=== PATIENT | female | born 1950 | race Caucasian/White ===

== ENCOUNTER 2016-10-09 10:22 | Emergency (ER) | payer BC, MEDICARE ==
[~2016-10-09] VITALS: Ht 160 cm; Wt 69.9 kg
[2016-10-09] MEDS ORDERED: MECLIZINE HCL 12.5 MG TABLET. PO ONE (10:45)
--- NOTE | 2016-10-09 10:51 | PHYS DOC ---
Past Medical History Past Medical History: GERD, High Cholesterol Past Surgical History: Cholecystectomy, Gastric Bypass, Other Additional Past Surgical Histo: lap band removed, L ELBOW Alcohol Use: None Drug Use: None Adult General Chief Complaint Chief Complaint: DIZZY/LIGHT HEADED HPI HPI Patient is a 65 year old female presents to the emergency department by POV patient states when she woke up this morning she states she was light headed and dizzy. Patient states the room was spinning. Patient states she was nauseated however she did not vomit. Patient states this has happened one other time when she was in the hospital with her was in the hospital, patient states it resolved on its own at that time. Patient states today it has not resolved. Review of Systems Review of Systems Constitutional: Denies fever or chills [] Eyes: Denies change in visual acuity, redness, or eye pain [] HENT: Denies nasal congestion or sore throat [] Respiratory: Denies cough or shortness of breath [] Cardiovascular: No additional information not addressed in HPI [] GI: Denies abdominal pain, nausea, vomiting, bloody stools or diarrhea [] : Denies dysuria or hematuria [] Musculoskeletal: Denies back pain or joint pain [] Integument: Denies rash or skin lesions [] Neurologic: Denies headache, focal weakness or sensory changes. C/o dizziness Endocrine: Denies polyuria or polydipsia [] Current Medications Current Medications Current Medications Medications (Trade) Dose Ordered Sig/Bambi Start Time Stop Time Status Last Admin Dose Admin Meclizine HCl (Antivert) 25 mg 1X ONCE 10/09/16 10:45 10/09/16 10:46 DC 10/09/16 11:03 25 MG Ondansetron HCl (Zofran) 4 mg 1X ONCE 10/09/16 11:00 10/09/16 11:01 DC 10/09/16 11:03 4 MG Allergies Allergies Allergies Coded Allergies Type Severity Reaction Last Updated Verified No Known Drug Allergies 01/23/15 No Physical Exam Physical Exam Constitutional: Well developed, well nourished, no acute distress, non-toxic appearance. [] HENT: Normocephalic, atraumatic, bilateral external ears normal, oropharynx moist, no oral exudates, nose normal. Bilateral TM normal. Eyes: PERRLA, EOMI, conjunctiva normal, no discharge. [] Neck: Normal range of motion, no tenderness, supple, no stridor. [] Cardiovascular:Heart rate regular rhythm, no murmur [] Lungs & Thorax: Bilateral breath sounds clear to auscultation [] Abdomen: Bowel sounds normal, soft, no tenderness, no masses, no pulsatile masses. [] Skin: Warm, dry, no erythema, no rash. [] Back: No tenderness Extremities: No tenderness, no cyanosis, no clubbing, ROM intact, no edema. [] Neurologic: Alert and oriented X 3, normal motor function, normal sensory function, no focal deficits noted. Cranial nerves II-XII intact patient without nystagmus Psychologic: Affect normal, judgement normal, mood normal. [] Current Patient Data Vital Signs Vital Signs Date Time Temp Pulse Resp B/P (MAP) Pulse Ox O2 Delivery O2 Flow Rate FiO2 10/09/16 10:30 98.3 64 20 166/83 (110) 98 Room Air 98.3 Lab Values Laboratory Tests Test 10/09/16 10:45 White Blood Count 5.9 x10^3/uL (4.0-11.0) Red Blood Count 4.38 x10^6/uL (3.50-5.40) Hemoglobin 13.3 g/dL (12.0-15.5) Hematocrit 38.8 % (36.0-47.0) Mean Corpuscular Volume 89 fL (79-100) Mean Corpuscular Hemoglobin 30 pg (25-35) Mean Corpuscular Hemoglobin Concent 34 g/dL (31-37) Red Cell Distribution Width 14.0 % (11.5-14.5) Platelet Count 249 x10^3/uL (140-400) Neutrophils (%) (Auto) 59 % (31-73) Lymphocytes (%) (Auto) 29 % (24-48) Monocytes (%) (Auto) 8 % (0-9) Eosinophils (%) (Auto) 3 % (0-3) Basophils (%) (Auto) 1 % (0-3) Neutrophils # (Auto) 3.4 x10^3uL (1.8-7.7) Lymphocytes # (Auto) 1.7 x10^3/uL (1.0-4.8) Monocytes # (Auto) 0.5 x10^3/uL (0.0-1.1) Eosinophils # (Auto) 0.2 x10^3/uL (0.0-0.7) Basophils # (Auto) 0.1 x10^3/uL (0.0-0.2) Sodium Level 141 mmol/L (136-145) Potassium Level 4.0 mmol/L (3.5-5.1) Chloride Level 106 mmol/L (98-107) Carbon Dioxide Level 25 mmol/L (21-32) Anion Gap 10 (6-14) Blood Urea Nitrogen 16 mg/dL (7-20) Creatinine 0.7 mg/dL (0.6-1.0) Estimated GFR (Cockcroft-Gault) 84.0 BUN/Creatinine Ratio 23 (6-20) H Glucose Level 103 mg/dL (70-99) H Calcium Level 9.2 mg/dL (8.5-10.1) Total Bilirubin 0.6 mg/dL (0.2-1.0) Aspartate Amino Transferase (AST) 23 U/L (15-37) Alanine Aminotransferase (ALT) 20 U/L (14-59) Alkaline Phosphatase 103 U/L (46-116) Troponin I Quantitative < 0.017 ng/mL (0.000-0.055) Total Protein 6.4 g/dL (6.4-8.2) Albumin 3.7 g/dL (3.4-5.0) Albumin/Globulin Ratio 1.4 (1.0-1.7) Laboratory Tests 10/09/16 10:45 Laboratory Tests 10/09/16 10:45 EKG EKG EKG completed with a heart rate of 54 sinus rhythm noted no ectopy no STEMI per Dr. Jackson[] Radiology/Procedures Radiology/Procedures [facility] [address] [place], [place] [id number] IMAGING REPORT Signed PATIENT: ALONA BRIGGS ACCOUNT: [id number] : 1950 LOCATION: ER AGE: 65 SEX: F EXAM STATUS: REG ER ORD. PHYSICIAN: JANIE SCHULER APRN REASON: dizziness PROCEDURE: CT HEAD WO CONTRAST Indication dizziness. Noncontrast images of the head were obtained. Note is made of a previous examination 12/28/2009. The calvarium appears unremarkable. The visualized paranasal sinuses appear normal. There is no subdural or epidural hematoma. The ventricles and sulci are normal. No mass or midline shift is seen. There is no evidence of hemorrhage. No acute intracranial finding is seen. IMPRESSION:: No acute or significant finding seen in the head. PQRS Compliance Statement: One or more of the following individualized dose reduction techniques were utilized for this examination: 1. Automated exposure control 2. Adjustment of the mA and/or kV according to patient size 3. Use of iterative reconstruction technique DICTATED and SIGNED BY: MARIBELL ADHIKARI MD DATE: 10/09/16 1891 CC: JANIE SCHULER APRN; CHANDRAKANT LANDRY MD ~ [] Course & Med Decision Making Course & Med Decision Making Pertinent Labs and Imaging studies reviewed. (See chart for details) CBC, CMP, troponin, EKG, CT head were all negative for any abnormalities. Patient was provided with meclizine here in the emergency department which she states that the dizziness is almost gone. She states that she still has nausea. She'll be provided with a second dose of Zofran. Patient will be discharged home in stable condition with signs and symptoms to return back to the emergency department. She was instructed that meclizine may cause drowsiness do not take any be alert and oriented. Patient was also instructed will send her with some prescription for Zofran. Recommended following up with her primary care physician in the next 3-5 days. Patient agrees with discharge instructions treatment regimens and follow-up recommendations. [] Dragon Disclaimer Dragon Disclaimer This electronic medical record was generated, in whole or in part, using a voice recognition dictation system. Departure Departure Impression: Primary Impression: Dizziness Disposition: HOME, SELF-CARE Condition: STABLE Referrals: CHANDRAKANT LANDRY MD (PCP) Patient Instructions: Vertigo, [id number] Additional Instructions: Home to rest Medication as prescribed When getting up from a lying position do so slowly to prevent increase dizziness Followup with primary care provider in 3-5 days Return to emergency department as needed for signs and symptoms that become worse. Scripts Meclizine Hcl (MECLIZINE HCL) 25 Mg Tablet 1 TAB PO PRN TID, #30 TAB Prov: JANIE SCHULER APRN 10/09/16 Ondansetron (ZOFRAN ODT) 4 Mg Tab.rapdis 1 TAB SL Q8HRS, #10 TAB Prov: JANIE SCHULER APRN 10/09/16 JANIE SCHULER APRN October 09, 2016 10:51
[2016-10-09 10:57] LABS: BASO # 0.1 x10^3/uL (0.0-0.2); BASO % 1 % (0-3); EOS % 3 % (0-3); HEMATOCRIT 38.8 % (36.0-47.0); HEMOGLOBIN 13.3 g/dL (12.0-15.5); LYMPH # 1.7 x10^3/uL (1.0-4.8); LYMPH % 29 % (24-48); MEAN CORPUSCULAR HEMOGLOBIN 30 pg (25-35); MEAN CORPUSCULAR HGB CONC 34 g/dL (31-37); MEAN CORPUSCULAR VOLUME 89 fL (79-100); MONO % 8 % (0-9); NEUT % 59 % (31-73); PLATELET COUNT 249 x10^3/uL (140-400); RED BLOOD COUNT 4.38 x10^6/uL (3.50-5.40); WHITE BLOOD COUNT 5.9 x10^3/uL (4.0-11.0)
[2016-10-09] MEDS ORDERED: ONDANSETRON PF 4 MG/2 ML VIAL. IV ONE (11:00)
[2016-10-09 11:05] LABS: CALCIUM 9.2 mg/dL (8.5-10.1); CREATININE 0.7 mg/dL (0.6-1.0)
--- NOTE | 2016-10-09 11:07 | EKG ---
[facility] [address] [place] [address] Test Date: 2016-10-09 Test Time: 10:40:18 Pat Name: ALONA BRIGGS Department: Room: Gender: F [employer]: : 1950 Requested By: JANIE SCHULER Order Number: [id number] Reading MD: Measurements Intervals [place] Rate: 54 P: 28 LA: 190 QRS: -20 QRSD: 82 T: 26 QT: 428 QTc: 408 Interpretive Statements SINUS RHYTHM ATRIAL PREMATURE COMPLEX(ES) LEFTWARD AXIS QRS(T) CONTOUR ABNORMALITY CONSISTENT WITH ANTEROSEPTAL INFARCT AGE UNDETERMINED CONSIDER INFERIOR MYOCARDIAL DAMAGE RI6.01 Unconfirmed report No previous ECG available for comparison
[2016-10-09 11:13] LABS: ALBUMIN 3.7 g/dL (3.4-5.0); ALBUMIN/GLOBULIN RATIO 1.4 (1.0-1.7); TOTAL BILIRUBIN 0.6 mg/dL (0.2-1.0); TOTAL PROTEIN 6.4 g/dL (6.4-8.2)
--- NOTE | 2016-10-09 11:59 | RAD ---
Indication dizziness. Noncontrast images of the head were obtained. Note is made of a previous examination 12/28/2009. The calvarium appears unremarkable. The visualized paranasal sinuses appear normal. There is no subdural or epidural hematoma. The ventricles and sulci are normal. No mass or midline shift is seen. There is no evidence of hemorrhage. No acute intracranial finding is seen. IMPRESSION:: No acute or significant finding seen in the head. PQRS Compliance Statement: One or more of the following individualized dose reduction techniques were utilized for this examination: 1. Automated exposure control 2. Adjustment of the mA and/or kV according to patient size 3. Use of iterative reconstruction technique
[2016-10-09 12:00] VITALS: BP 176/76
[2016-10-09] MEDS ORDERED: MECL25TA3 PO (12:12)
[2016-10-09] MEDS ORDERED: ONDA4TAB10 SL (12:12)
[2016-10-09] MEDS ORDERED: ONDANSETRON ODT 4 MG TAB.RAPDIS. PO ONE (12:15)
== END 2016-10-09 12:34 | disposition home or self-care (01) ==
LOC: ER 10:22
DX: R42 Dizziness and giddiness (principal); E78.00 Pure hypercholesterolemia, unspecified; K21.9 Gastro-esophageal reflux disease without esophagitis; Z90.49 Acquired absence of other specified parts of digestive tract; Z98.84 Bariatric surgery status
CPT/HCPCS: 36415; 70450; 80053; 84484; 85027; 93005; 96374; 99285; J2405; J8597; Q0162

== ENCOUNTER 2017-04-24 22:26 | Emergency (ER) | payer MEDICARE ==
[~2017-04-24] VITALS: Ht 157.5 cm; Wt 66.7 kg
[~2017-04-24 22:26] MED LIST: MECL25TA3 PO; ONDA4TAB10 SL
[2017-04-24 22:51] LABS: BILIRUBIN,URINE SMALL (NEG); GLUCOSE,URINE NEGATIVE (NEG); NITRITE,URINE POSITIVE (NEG); PROTEIN,URINE NEGATIVE (NEG-TRACE)
[2017-04-24 22:53] LABS: BASO # 0.1 x10^3/uL (0.0-0.2); BASO % 1 % (0-3); EOS % 3 % (0-3); HEMATOCRIT 42.4 % (36.0-47.0); HEMOGLOBIN 13.9 g/dL (12.0-15.5); LYMPH # 2.1 x10^3/uL (1.0-4.8); LYMPH % 22 % (24-48); MEAN CORPUSCULAR HEMOGLOBIN 30 pg (25-35); MEAN CORPUSCULAR HGB CONC 33 g/dL (31-37); MEAN CORPUSCULAR VOLUME 92 fL (79-100); MONO % 9 % (0-9); NEUT % 67 % (31-73); PLATELET COUNT 227 x10^3/uL (140-400); RED BLOOD COUNT 4.58 x10^6/uL (3.50-5.40); RED CELL DISTRIBUTION WIDTH 14.1 % (11.5-14.5); WHITE BLOOD COUNT 9.7 x10^3/uL (4.0-11.0)
--- NOTE | 2017-04-24 22:53 | PHYS DOC ---
Past Medical History Past Medical History: GERD, High Cholesterol Additional Past Medical Histor: Vertigo Past Surgical History: Cholecystectomy, Gastric Bypass, Other Additional Past Surgical Histo: lap band removed, L ELBOW Additional Information: Non smoker Alcohol Use: None Drug Use: None Social History Narrative: Lives with sister Adult General Chief Complaint Chief Complaint: SYNCOPE HPI HPI Patient is a 66 year old female who presents with complaint of syncope. She states yesterday at 2230 PM she was going home with her sister (whom she lives with) and her sister felt something hit her leg "and I realized she passed out on the yard." She denies any preceding complaints; no headache; no SOA; no chest pain; no back pain and no abdominal pain. She denies any recent illness. She slept "all day today" and complains of frontal headache, dizziness and nausea. No spinning but more light headed. The frontal headache is a "7". She still denies any chest pain, no shortness of air, no back pain and no abdominal pain. Had one loose stool today; no blood. No burning or blood in urine. No travel. No confusion (per patient or family). She was here 09/[address] head negative and normal lab. Treated successfully with meclizine and zofran. Followed by Dr Moran. Review of Systems Review of Systems Constitutional: Denies fever or chills Eyes: Denies change in visual acuity, redness, or eye pain HENT: Denies nasal congestion or sore throat Respiratory: Denies cough or shortness of breath Cardiovascular: No chest pain GI: Denies abdominal pain, POS nausea, Denies vomiting,NO bloody stools one loose stool. : Denies dysuria or hematuria Musculoskeletal: Denies back pain or joint pain Integument: Denies rash or skin lesions Neurologic: POS headache, Denies focal weakness or sensory changes; light headed. Endocrine: Denies polyuria or polydipsia All other systems were reviewed and found to be within normal limits, except as documented in this note. Current Medications Current Medications Current Medications Medications (Trade) Dose Ordered Sig/Bambi Start Time Stop Time Status Last Admin Dose Admin Ceftriaxone Sodium 50 ml @ 100 mls/hr 1X ONCE 04/24/17 23:45 04/25/17 00:14 DC 04/24/17 23:27 100 MLS/HR Info (Do NOT chart on this entry -- for MONITORING) 1 each PRN DAILY PRN 04/24/17 23:45 04/26/17 23:44 Iohexol (Omnipaque 300 Mg/ml) 75 ml 1X ONCE 04/25/17 00:30 04/25/17 00:31 DC 04/25/17 00:50 75 ML Sodium Chloride 1,000 ml @ 1,000 mls/hr 1X ONCE 04/25/17 00:00 04/25/17 00:59 DC 04/25/17 00:25 1,000 MLS/HR Allergies Allergies Allergies Coded Allergies Type Severity Reaction Last Updated Verified No Known Drug Allergies 01/23/15 No Physical Exam Physical Exam Constitutional: Well developed, well nourished, no acute distress, non-toxic appearance. Ambulates without difficulty HENT: Normocephalic,swelling to back of head, no laceration, tympanic membranes are clear without hemotympanum bilaterally, bilateral external ears normal, oropharynx moist, no oral exudates, nose normal. Eyes: PERRLA, EOMI, conjunctiva normal, no discharge. Neck: Normal range of motion, no tenderness, supple, no stridor. Nontender to palpation of cervical spine, no crepitus or step-off. Cardiovascular:Heart rate regular rhythm, no murmur Lungs & Thorax: Bilateral breath sounds clear to auscultation Abdomen: Bowel sounds normal, soft, no tenderness, no masses, no pulsatile masses. Skin: Warm, dry, no erythema, no rash. Back: No tenderness, no CVA tenderness. Extremities: No tenderness, no cyanosis, no clubbing, ROM intact, no edema. Neurologic: Alert and oriented X 3, normal motor function, normal sensory function, no focal deficits noted. Psychologic: Affect normal, judgement normal, mood normal. Current Patient Data Vital Signs Vital Signs Date Time Temp Pulse Resp B/P (MAP) Pulse Ox O2 Delivery O2 Flow Rate FiO2 04/24/17 23:29 61 20 142/72 (95) 100 04/24/17 22:32 98.0 Room Air 98.0 Lab Values Laboratory Tests Test 04/24/17 22:40 White Blood Count 9.7 x10^3/uL (4.0-11.0) Red Blood Count 4.58 x10^6/uL (3.50-5.40) Hemoglobin 13.9 g/dL (12.0-15.5) Hematocrit 42.4 % (36.0-47.0) Mean Corpuscular Volume 92 fL (79-100) Mean Corpuscular Hemoglobin 30 pg (25-35) Mean Corpuscular Hemoglobin Concent 33 g/dL (31-37) Red Cell Distribution Width 14.1 % (11.5-14.5) Platelet Count 227 x10^3/uL (140-400) Neutrophils (%) (Auto) 67 % (31-73) Lymphocytes (%) (Auto) 22 % (24-48) L Monocytes (%) (Auto) 9 % (0-9) Eosinophils (%) (Auto) 3 % (0-3) Basophils (%) (Auto) 1 % (0-3) Neutrophils # (Auto) 6.5 x10^3uL (1.8-7.7) Lymphocytes # (Auto) 2.1 x10^3/uL (1.0-4.8) Monocytes # (Auto) 0.8 x10^3/uL (0.0-1.1) Eosinophils # (Auto) 0.3 x10^3/uL (0.0-0.7) Basophils # (Auto) 0.1 x10^3/uL (0.0-0.2) D-Dimer (Christina) 0.61 ug/mlFEU (0.00-0.50) H Urine Collection Type Unknown Urine Color Kylie Urine Clarity Turbid Urine pH 6.0 Urine Specific [place] >=1.030 Urine Protein Negative mg/dL (NEG-TRACE) Urine Glucose (UA) Negative mg/dL (NEG) Urine Ketones (Stick) Trace mg/dL (NEG) Urine Blood Trace (NEG) Urine Nitrite Positive (NEG) Urine Bilirubin Small (NEG) Urine Urobilinogen Dipstick 1.0 mg/dL (0.2 mg/dL) Urine Leukocyte Esterase Small (NEG) Urine RBC 1-2 /HPF (0-2) Urine WBC 5-10 /HPF (0-4) Urine Squamous Epithelial Cells Few /LPF Urine Amorphous Sediment Present /HPF Urine Bacteria Many /HPF (0-FEW) Urine Mucus Slight /LPF Sodium Level 139 mmol/L (136-145) Potassium Level 3.5 mmol/L (3.5-5.1) Chloride Level 101 mmol/L (98-107) Carbon Dioxide Level 26 mmol/L (21-32) Anion Gap 12 (6-14) Blood Urea Nitrogen 21 mg/dL (7-20) H Creatinine 0.8 mg/dL (0.6-1.0) Estimated GFR (Cockcroft-Gault) 71.8 BUN/Creatinine Ratio 26 (6-20) H Glucose Level 107 mg/dL (70-99) H Calcium Level 9.2 mg/dL (8.5-10.1) Magnesium Level 2.0 mg/dL (1.8-2.4) Total Bilirubin 0.5 mg/dL (0.2-1.0) Aspartate Amino Transferase (AST) 20 U/L (15-37) Alanine Aminotransferase (ALT) 22 U/L (14-59) Alkaline Phosphatase 86 U/L (46-116) Creatine Kinase 82 U/L (26-192) Creatine Kinase MB (Mass) < 0.5 ng/mL (0.0-3.6) Creatine Kinase MB Relative Index 0.6 % (0-4) Troponin I Quantitative < 0.017 ng/mL (0.000-0.055) DV-Aqj-G-Type Natriuretic Peptide 143 pg/mL (0-124) H Total Protein 7.2 g/dL (6.4-8.2) Albumin 4.1 g/dL (3.4-5.0) Albumin/Globulin Ratio 1.3 (1.0-1.7) Laboratory Tests 04/24/17 22:40 Laboratory Tests 04/24/17 22:40 EKG EKG EKG interpreted by myself at 2240 PM with NSR< rate 62, leftward axis; no ST elevation. Radiology/Procedures Radiology/Procedures CXR interpreted by myself at 2315 PM: no acute infiltrate; slightly elevated right hemidiaphragm. No pleural effusion. [facility] [address] [place] [address] IMAGING REPORT Signed PATIENT: ALONA BRIGGS ACCOUNT: [id number] : 1950 LOCATION: ER AGE: 66 SEX: F EXAM STATUS: REG ER ORD. PHYSICIAN: IMELDA CHINO MD REASON: syncope; hit back of head; now headache and dizziness; h/o vertigo PROCEDURE: CT HEAD AND CERVICAL SPINE WO CT and cervical spine without contrast 04/24/2017 Clinical indications: Dizzy and fall. Neck pain. COMPARISON: CT head without contrast 12/18/2009. TECHNIQUE: Multiple CT images of the head and cervical spine were obtained without contrast. *One or more of the following individualized dose reduction techniques were utilized for this examination: 1. Automated exposure control. 2. Adjustment of the mA and/or kV according to patient size. 3. Use of iterative reconstruction technique. FINDINGS: Head: No acute intracranial hemorrhage or extra-axial fluid collection. No midline shift. The ventricles and subarachnoid spaces are normal in size and configuration for age. The alejandre-white matter interfaces are maintained. The basal cisterns are patent. Cervical spine: No acute cervical spine fracture or traumatic malalignment. Moderate atlantodens arthrosis. No predental space widening. The vertebral body heights are maintained. There is 2 mm anterolisthesis C4 on C5. Multilevel cervical spondylosis with disc space narrowing, uncovertebral and facet hypertrophy and posterior disc osteophyte complexes. Spondylosis results in multilevel neural foraminal narrowing, greatest to severe degree, on the right at C3-C4 and on the right at C5-C6. At C2-C3, central disc protrusion resulting in mild spinal canal narrowing. At C5-C6, posterior disc osteophyte complex results in moderate spinal canal narrowing. The paraspinal soft tissues are unremarkable. The visualized lung apices are clear. IMPRESSION: Head: 1. No acute intracranial hemorrhage. Cervical spine: 1. No acute cervical spine fracture or traumatic malalignment. 2. Cervical spondylosis resulting in multilevel neural foraminal narrowing greatest to severe degree on the right at C3-C4 and C5-C6. 3. At C5-C6, posterior disc osteophyte complex resulting in moderate spinal canal narrowing. Electronically signed by: Lisandro Rice MD (04/24/2017 11:22 PM) [facility] DICTATED and SIGNED BY: LISANDRO RICE MD DATE: 04/24/17 2229 CC: IMELDA CHINO MD; CHANDRAKANT MORAN MD ~ [facility] [address] [facility] [place] [address] IMAGING REPORT Signed PATIENT: ALONA BRIGGS ACCOUNT: [id number] : 1950 LOCATION: ER AGE: 66 SEX: F EXAM STATUS: REG ER ORD. PHYSICIAN: IMELDA CHINO MD REASON: elev D dimer; syncope; r/o PE PROCEDURE: CT ANGIOGRAPHY CHEST INDICATION: PASSED OUT LAST NIGHT AND HIT HEAD ON PORCH ELEVATED D DIMER INJ 75ML OMNI 300 NO PREV SX: AMANDA LAP[ BAND GASTRIC BYPASS COMPARISON: None. TECHNIQUE: Axial CT images obtained through the chest. Intravenous contrast utilized. Angiogram 3D images processed per protocol. One or more of the following individualized dose reduction techniques were utilized for this examination: 1. Automated exposure control; 2. Adjustment of the mA and/or kV according to patient size; 3. Use of iterative reconstruction technique. FINDINGS: No definite focal airspace consolidation to suggest pneumonia. Mild linear opacities at left lung base. Could be scarring or atelectasis. Sub-4 mm right upper lung nodule. Additional right midlung nodule measuring up to 6 mm. Postoperative changes partially visualized stomach. Possible low-attenuation region of fullness at partially visualized pancreatic head. Partial visualization of fat-containing anterior abdominal wall hernia. Motion obscures portions of proximal aorta but no definite aneurysm in visualized portions. Mildly enlarged right hilar lymph node measuring up to approximately 15 mm short axis. Scattered smaller lymph nodes in mediastinum. There is a couple of mildly angulated ribs anteriorly including on the left at the second through fourth ribs. Could be from old injury but would correlate with pain in the region to ensure that this is not from acute fracture. IMPRESSION: No central pulmonary embolus. There are couple of pulmonary nodules measuring up to 6 mm. Partial visualization of the pancreas with some possible fullness in the pancreatic head region. May be helpful to obtain a follow-up nonemergent CT or MRI pancreatic protocol to further evaluate and ensure that there is not a lesion in the area. Would also correlate with symptoms to ensure that there is not pancreatitis. Mildly enlarged right hilar lymph node of unknown etiology. Mild angulation of a few of the left anterior ribs. This is a very subtle finding but would correlate with pain in the region to ensure that this is not secondary to acute injury. This could be related to remote injury as well. Minimal wedging T6 vertebral body. Could be an old finding but correlate with pain in the region to ensure that this is not acute. There is mild contour deformity at the inferior aspect of the aortic arch distally. Most common cause for this finding would be a ductus bump unless the patient has had history of significant trauma to the chest to suggest a posttraumatic cause which is considered less likely. Electronically signed by: Finesse Marie MD (04/25/2017 12:59 AM) [facility] DICTATED and SIGNED BY: FINESSE MARIE MD DATE: 04/25/17 0045 CC: IMELDA CHINO MD; CHANDRAKANT MORAN MD ~ Course & Med Decision Making Course & Med Decision Making Evaluated patient upon arrival to room 18. Mental status at baseline (family in room confirm). She feels like this might be different from usual vertigo. At 2315 PM: back from CT and awaiting results. BUN elevated and UA positive. IV NS wide open, Rocephin IV. At 2335 CT results negative. D dimer elevated. Reviewed findings with patient and family. Will check CT chest to r/o PE. At 0015 AM: back from CT and awaiting results. Second liter infusing. At 0115 am: radiology report back and noted. No PE. Home with Rx: for macrobid. Follow up with Dr Moran on Thursday. I have spoken with the patient and/or caregivers. I have explained the patient' s condition, diagnosis and treatment plan based on the information available to me at this time. I have answered the patient's and/or caregiver's questions and addressed any concerns. The patient and/or caregivers have as good an understanding of the patient's diagnosis, condition and treatment plan as can be expected at this point. The patient's condition is stable and appropriate for discharge from the emergency department. The patient will pursue further outpatient evaluation with the primary care physician or other designated or consulting physician as outlined in the discharge instructions. The patient and/or caregivers are agreeable to this plan of care and follow-up instructions have been explained in detail. The patient and/or caregivers have received these instructions in written format and have expressed an understanding of the discharge instructions. The patient and/or caregivers are aware that any significant change in condition or worsening of symptoms should prompt an immediate return to this or the closest emergency department or a call to 911. Transient ischemic attack (particularly in older adults), Migraine, Panic attack and anxiety,Psychogenic nonepileptic seizure, Transient global amnesia ( rare before the age of 50 years), Narcolepsy with cataplexy, Paroxysmal movement disorders, cardiac dysrhythmias, electrolyte imbalances. Pulmonary emboli, Sepsis. PERC RULE Criteria: Age < than 50 years-NO Heart rate < 100-YES Oxygen saturation > 95%-YES No hemoptysis-YES No estrogen use-YES No prior DVT or PE-YES No unilateral leg swelling-YES No surgery or trauma requiring hospitalization within the prior 4 weeks-YES PERC rule not satisfied. Dragon Disclaimer Dragon Disclaimer This electronic medical record was generated, in whole or in part, using a voice recognition dictation system. Departure Departure Impression: Primary Impression: Urinary tract infection Additional Impressions: Dehydration Dizziness Syncope Disposition: HOME, SELF-CARE Condition: STABLE Referrals: CHANDRAKANT MORAN MD (PCP) Patient Instructions: Dehydration, Adult, Dizziness, Syncope, Urinary Tract Infection Additional Instructions: YOUR URINE WAS INFECTED HERE AND YOU WERE DEHYDRATED. YOU WERE GIVEN YOUR FIRST DOSE OF ANTIBIOTICS HERE AND IV FLUIDS. LAB AND CT IMAGING WERE ALL UNREMARKABLE OTHERWISE. CALL DR MORAN ON THURSDAY FOR EVALUATION AND FOLLOW UP ON INCIDENTAL CT FINDINGS. Scripts Meclizine Hcl (MECLIZINE HCL) 25 Mg Tablet 1 TAB PO PRN TID, #30 TAB Prov: IMELDA CHINO MD 04/25/17 Ondansetron (ZOFRAN ODT) 4 Mg Tab.rapdis 4 MG PO BID Y for NAUSEA/VOMITING, #10 TAB Prov: IMELDA CHINO MD 04/25/17 Nitrofurantoin Monohyd/M-Cryst (MACROBID 100 MG CAPSULE) 100 Mg Capsule 1 CAP PO BID, #14 CAP Prov: IMELDA CHINO MD 04/25/17 Problem Qualifiers Primary Impression: Urinary tract infection Urinary tract infection type: acute cystitis Hematuria presence: without hematuria Qualified Codes: N30.00 - Acute cystitis without hematuria Additional Impressions: Syncope Syncope type: unspecified Qualified Codes: R55 - Syncope and collapse IMELDA CHINO MD Apr 24, 2017 22:52
[2017-04-24 22:57] LABS: BACTERIA,URINE MANY /HPF (0-FEW); SQUAMOUS EPITHELIAL CELL,UR FEW /LPF
[2017-04-24] MEDS ORDERED: IV NORMAL SALINE 1000ML BAG 1,000 ML IV SCH (23:00)
[2017-04-24 23:03] LABS: CALCIUM 9.2 mg/dL (8.5-10.1); CREATININE 0.8 mg/dL (0.6-1.0); GFR 71.8; POTASSIUM 3.5 mmol/L (3.5-5.1)
[2017-04-24 23:10] LABS: ALBUMIN 4.1 g/dL (3.4-5.0); ALBUMIN/GLOBULIN RATIO 1.3 (1.0-1.7); TOTAL BILIRUBIN 0.5 mg/dL (0.2-1.0); TOTAL PROTEIN 7.2 g/dL (6.4-8.2)
[2017-04-24 23:17] LABS: CREATINE KINASE 82 U/L (26-192)
[2017-04-24 23:21] LABS: CKMB MASS < 0.5 ng/mL (0.0-3.6)
--- NOTE | 2017-04-24 23:25 | RAD ---
CT and cervical spine without contrast 04/24/2017 Clinical indications: Dizzy and fall. Neck pain. COMPARISON: CT head without contrast 12/18/2009. TECHNIQUE: Multiple CT images of the head and cervical spine were obtained without contrast. *One or more of the following individualized dose reduction techniques were utilized for this examination: 1. Automated exposure control. 2. Adjustment of the mA and/or kV according to patient size. 3. Use of iterative reconstruction technique. FINDINGS: Head: No acute intracranial hemorrhage or extra-axial fluid collection. No midline shift. The ventricles and subarachnoid spaces are normal in size and configuration for age. The alejandre-white matter interfaces are maintained. The basal cisterns are patent. Cervical spine: No acute cervical spine fracture or traumatic malalignment. Moderate atlantodens arthrosis. No predental space widening. The vertebral body heights are maintained. There is 2 mm anterolisthesis C4 on C5. Multilevel cervical spondylosis with disc space narrowing, uncovertebral and facet hypertrophy and posterior disc osteophyte complexes. Spondylosis results in multilevel neural foraminal narrowing, greatest to severe degree, on the right at C3-C4 and on the right at C5-C6. At C2-C3, central disc protrusion resulting in mild spinal canal narrowing. At C5-C6, posterior disc osteophyte complex results in moderate spinal canal narrowing. The paraspinal soft tissues are unremarkable. The visualized lung apices are clear. IMPRESSION: Head: 1. No acute intracranial hemorrhage. Cervical spine: 1. No acute cervical spine fracture or traumatic malalignment. 2. Cervical spondylosis resulting in multilevel neural foraminal narrowing greatest to severe degree on the right at C3-C4 and C5-C6. 3. At C5-C6, posterior disc osteophyte complex resulting in moderate spinal canal narrowing. Electronically signed by: Livan Rice MD (04/24/2017 11:22 PM) [facility]
[2017-04-24] MEDS ORDERED: IV NORMAL SALINE 1000ML BAG 1,000 ML IV ONE (23:30)
[2017-04-24] MEDS ORDERED: CONTRAST GIVEN MC PRN (23:45)
[2017-04-25] MEDS ORDERED: IV NORMAL SALINE 1000ML BAG 1,000 ML IV ONE
[2017-04-25] MEDS ORDERED: IOHEXOL 300 MG/ML 100ML VIAL. IV ONE (00:30)
[2017-04-25 01:00] VITALS: BP 118/56
--- NOTE | 2017-04-25 01:02 | RAD ---
INDICATION: PASSED OUT LAST NIGHT AND HIT HEAD ON PORCH ELEVATED D DIMER INJ 75ML OMNI 300 NO PREV SX: AMANDA LAP[ BAND GASTRIC BYPASS COMPARISON: None. TECHNIQUE: Axial CT images obtained through the chest. Intravenous contrast utilized. Angiogram 3D images processed per protocol. One or more of the following individualized dose reduction techniques were utilized for this examination: 1. Automated exposure control; 2. Adjustment of the mA and/or kV according to patient size; 3. Use of iterative reconstruction technique. FINDINGS: No definite focal airspace consolidation to suggest pneumonia. Mild linear opacities at left lung base. Could be scarring or atelectasis. Sub-4 mm right upper lung nodule. Additional right midlung nodule measuring up to 6 mm. Postoperative changes partially visualized stomach. Possible low-attenuation region of fullness at partially visualized pancreatic head. Partial visualization of fat-containing anterior abdominal wall hernia. Motion obscures portions of proximal aorta but no definite aneurysm in visualized portions. Mildly enlarged right hilar lymph node measuring up to approximately 15 mm short axis. Scattered smaller lymph nodes in mediastinum. There is a couple of mildly angulated ribs anteriorly including on the left at the second through fourth ribs. Could be from old injury but would correlate with pain in the region to ensure that this is not from acute fracture. IMPRESSION: No central pulmonary embolus. There are couple of pulmonary nodules measuring up to 6 mm. Partial visualization of the pancreas with some possible fullness in the pancreatic head region. May be helpful to obtain a follow-up nonemergent CT or MRI pancreatic protocol to further evaluate and ensure that there is not a lesion in the area. Would also correlate with symptoms to ensure that there is not pancreatitis. Mildly enlarged right hilar lymph node of unknown etiology. Mild angulation of a few of the left anterior ribs. This is a very subtle finding but would correlate with pain in the region to ensure that this is not secondary to acute injury. This could be related to remote injury as well. Minimal wedging T6 vertebral body. Could be an old finding but correlate with pain in the region to ensure that this is not acute. There is mild contour deformity at the inferior aspect of the aortic arch distally. Most common cause for this finding would be a ductus bump unless the patient has had history of significant trauma to the chest to suggest a posttraumatic cause which is considered less likely. Electronically signed by: Dereck Marie MD (04/25/2017 12:59 AM) [facility]
[2017-04-25] MEDS ORDERED: MECL25TA3 PO (01:20)
[2017-04-25] MEDS ORDERED: ONDA4TAB10 PO (01:20)
[2017-04-25] MEDS ORDERED: NITR100C62 PO (01:20)
--- NOTE | 2017-04-25 07:06 | EKG ---
[facility] [address] [place] [address] Test Date: 2017-04-24 Test Time: 22:40:30 Pat Name: ALONA BRIGGS Department: Room: Gender: F Medical Language Specialist: : 1950 Requested By: IMELDA CHINO Order Number: [id number] Reading MD: Guevara Weiss MD Measurements Intervals [place] Rate: 62 P: 42 LA: 186 QRS: -16 QRSD: 84 T: 26 QT: 426 QTc: 435 Interpretive Statements SINUS RHYTHM Electronically Signed On 05-01-2017 14:40:52 [employer] by Guevara Weiss MD
--- NOTE | 2017-04-25 08:18 | RAD ---
AP chest. History: Syncope AP view was taken of the chest. Lungs are clear. Heart is normal in size without heart failure. There is no effusion. Impression: 1. No acute chest disease.
== END 2017-04-25 01:45 | disposition home or self-care (01) ==
LOC: ER 22:26
DX: R55 Syncope and collapse (principal); N30.00 Acute cystitis without hematuria; E86.0 Dehydration; R42 Dizziness and giddiness; R51 Headache; K21.9 Gastro-esophageal reflux disease without esophagitis; E78.00 Pure hypercholesterolemia, unspecified; Z90.49 Acquired absence of other specified parts of digestive tract; Z98.84 Bariatric surgery status
CPT/HCPCS: 36415; 70450; 71010; 71275; 72125; 80053; 81001; 82553; 83735; 83880; 84484; 85025; 85379; 87086; 87186; 93005; 96361; 96365; 99285; J0690; J7030; Q9967

== ENCOUNTER 2019-10-05 18:56 | Emergency (ER) | payer MEDICARE ==
[~2019-10-05] VITALS: Ht 160 cm; Wt 82.0 kg
[~2019-10-05 18:56] MED LIST changes: +MECL-75 PO; -MECL25TA3 PO; +NITR100C62 PO; +ONDA4TAB10 PO
[2019-10-05] MEDS ORDERED: ONDANSETRON PF 4 MG/2 ML VIAL. IVP ONE (19:30)
[2019-10-05] MEDS ORDERED: fentaNYL PF VIAL 100 MCG/2 ML VIAL IVP ONE ×2 (19:30→20:15)
--- NOTE | 2019-10-05 19:50 | RAD ---
ELBOW LEFT 3V History: Fall. Pain. Technique: 3 views left elbow. Comparison: None. Findings: Postoperative changes left lateral humeral condyle. No significant elbow joint effusion. Elbow degenerative changes. No acute fracture. Radial tuberosity and olecranon enthesophyte. Soft tissues unremarkable. Impression: 1. No acute osseous abnormality. 2. Elbow degenerative and postoperative changes. Electronically signed by: Too Barba DO (10/05/2019 7:47 PM) [facility]
[2019-10-05] MEDS ORDERED: KETOROLAC 15 MG/ML VIAL. IVP ONE (20:15)
--- NOTE | 2019-10-05 20:52 | RAD ---
SHOULDER 2+V LEFT History: Fall. Pain. Technique: 2 views left shoulder. Comparison: None. Findings: Acute comminuted left humeral head fracture. No dislocation. Soft tissues unremarkable. Mild acromioclavicular DJD. Impression: 1. Acute comminuted left humeral head fracture. Electronically signed by: Too Barba DO (10/05/2019 8:49 PM) [facility]
[2019-10-05] MEDS ORDERED: HYDR-3164 PO (21:02)
--- NOTE | 2019-10-05 21:03 | PHYS DOC ---
Past Medical History Past Medical History: GERD, High Cholesterol Additional Past Medical Histor: Vertigo Past Surgical History: Cholecystectomy, Gastric Bypass, Other Additional Past Surgical Histo: lap band removed, L ELBOW, GASTRIC SLEEVE Smoking Status: Never Smoker Alcohol Use: None Drug Use: None General Adult EDM: Chief Complaint: MECHANICAL FALL HPI: HPI: Patient is a 68 year old female who presents with complaint of left elbow pain after tripping over a hose at the car wash. Patient states that she fell onto her left elbow. She rates pain at a 10 out of 10. She states that she has had surgery on that left elbow in the past and she knows that she broke it. She denies any other injuries. She states that the pain radiates up and down her arm. [] Review of Systems: Review of Systems: Constitutional: Denies fever or chills. [] Respiratory: Denies cough or shortness of breath. [] Cardiovascular: Denies chest pain or edema. [] Musculoskeletal: Complains of left elbow pain. [] Integument: Denies rash. [] Neurologic: Denies headache, focal weakness or sensory changes. [] Heart Score: Risk Factors: Risk Factors: DM, Current or recent (<one month) smoker, HTN, HLP, family history of CAD, obesity. Risk Scores: Score 0 - 3: 2.5% MACE over next 6 weeks - Discharge Home Score 4 - 6: 20.3% MACE over next 6 weeks - Admit for Clinical Observation Score 7 - 10: 72.7% MACE over next 6 weeks - Early Invasive Strategies Current Medications: Current Medications Medications (Trade) Dose Ordered Sig/[facility] Start Time Stop Time Status Last Admin Dose Admin Fentanyl Citrate (Fentanyl 2ml Vial) 50 mcg 1X ONCE 10/05/19 20:15 10/05/19 20:16 DC 10/05/19 20:10 50 MCG Ketorolac Tromethamine (Toradol 15mg Vial) 15 mg 1X ONCE 10/05/19 20:15 10/05/19 20:16 DC 10/05/19 20:09 15 MG Ondansetron HCl (Zofran) 4 mg 1X ONCE 10/05/19 19:30 10/05/19 19:32 DC 10/05/19 19:30 4 MG Allergies: Allergies: Allergies Coded Allergies Type Severity Reaction Last Updated Verified No Known Drug Allergies 01/23/15 No Physical Exam: PE: Constitutional: Well developed, well nourished, no acute distress, non-toxic appearance. [] HENT: Normocephalic, atraumatic, bilateral external ears normal, oropharynx moist, no oral exudates, nose normal. [] Cardiovascular: Regular rate and rhythm [] Lungs & Thorax: Bilateral breath sounds clear to auscultation [] Skin: Warm, dry, no erythema, no rash. [] Extremities: Examination of left elbow demonstrates tenderness to palpation. Patient unable to tolerate any range of motion about the elbow due to pain. There is also tenderness to palpation around the humeral head. [] Neurologic: Alert and oriented X 3, no focal deficits noted. [] Current Patient Data: Vital Signs: Vital Signs Date Time Temp Pulse Resp B/P (MAP) Pulse Ox O2 Delivery O2 Flow Rate FiO2 10/05/19 20:10 18 100 Room Air 10/05/19 19:00 98.4 68 153/77 (102) 98.4 EKG: EKG: [] Radiology/Procedures: Radiology/Procedures: [] Impression: PROCEDURE: SHOULDER 2+V LEFT SHOULDER 2+V LEFT History: Fall. Pain. Technique: 2 views left shoulder. Comparison: None. Findings: Acute comminuted left humeral head fracture. No dislocation. Soft tissues unremarkable. Mild acromioclavicular DJD. Impression: 1. Acute comminuted left humeral head fracture. Electronically signed by: Too Barba DO (10/05/2019 8:49 PM) [facility] Course & Med Decision Making: Course & Med Decision Making Pertinent Labs and Imaging studies reviewed. (See chart for details) [] Dragon Disclaimer: Dragon Disclaimer: This electronic medical record was generated, in whole or in part, using a voice recognition dictation system. Departure Departure Impression: Primary Impression: Fracture of humeral head, closed Qualified Codes: S42.292A - Other displaced fracture of upper end of left humerus, initial encounter for closed fracture Disposition: 01 HOME, SELF-CARE Condition: STABLE Referrals: CHANDRAKANT LANDRY MD (PCP) TRUDY WEBSTER MD Patient Instructions: Shoulder Fracture (Proximal Humerus or Glenoid)-SportsMed Additional Instructions: Maintain arm in sling for comfort. Follow-up with orthopedist in the next few days. Scripts Hydrocodone/Apap 5-325 (NORCO 5-325 TABLET) 1 Each Tablet 1-2 EACH PO PRN Q6HRS PRN for PAIN, #15 as needed for pain Prov: PILAR KEVIN Jr. DO 10/05/19 PILAR KEVIN Jr. DO October 05, 2019 21:03
[2019-10-05 21:10] VITALS: BP 151/72
== END 2019-10-05 21:43 | disposition home or self-care (01) ==
LOC: ER 18:56
DX: S42.292A Other displaced fracture of upper end of left humerus, initial encounter for closed fracture (principal); M25.522 Pain in left elbow; K21.9 Gastro-esophageal reflux disease without esophagitis; E78.00 Pure hypercholesterolemia, unspecified; Z90.49 Acquired absence of other specified parts of digestive tract; Z98.890 Other specified postprocedural states; W01.0XXA Fall on same level from slipping, tripping and stumbling without subsequent striking against object, initial encounter; Y93.89 Activity, other specified; Y92.89 Other specified places as the place of occurrence of the external cause; Y99.8 Other external cause status
CPT/HCPCS: 73030; 73080; 96374; 96375; 96376; 99284; J1885; J2405; J3010; A4565